=== PATIENT | female | born 1955 | race Caucasian/White ===

== ENCOUNTER → 2016-09-22 | Outpatient (CLI) | payer MEDICARE, MEDICAID ==
[~2016-09-22] MED LIST: ACET-2469 PO; ACET-93 PO; ASPI-808 PO; CALC600T12 PO; ERGO400T3 PO; MAGN250T13 PO; MULT-974 PO; NAPR500T3 PO; TRAM50TA2 PO
--- NOTE | 2016-09-22 17:09 | Diagnostic Imaging Report ---
Bilateral screening mammogram. The current study was also evaluated with a Computer Aided Detection (CAD) system. INDICATION: Screening. No current complaints stated on the questionnaire. COMPARISON: 09/19/2015. FINDINGS: The breasts are composed of heterogeneously dense parenchyma which may decrease mammographic sensitivity. Benign-appearing calcifications are seen. There is a biopsy clip noted in the outer aspect of the right breast. Allowing for technique and positional differences, no suspicious change is seen. IMPRESSION: Dense breasts with no definite change. ACR BI-RADS Category 2: Benign findings. Result letter will be mailed to the patient. Note: At least 10% of breast cancer is not imaged by mammography. Dictated by: Dictated on workstation # [id number]
== END ==
LOC: RAD 11:01
PROVIDERS: ATTEND Nurse Practitioner Community Health
DX: Z12.31 Encounter for screening mammogram for malignant neoplasm of breast (principal)
CPT/HCPCS: 77067

== ENCOUNTER → 2017-12-17 | Outpatient (CLI) | payer MEDICARE, MEDICAID ==
[~2017-12-17] MED LIST changes: +NAPR-915 PO; -NAPR500T3 PO
--- NOTE | 2017-12-17 18:01 | Diagnostic Imaging Report ---
INDICATION: Digital mammogram bilateral screening with 3-D tomosynthesis. This study was compared to the prior exam of 09/22/16, 09/19/15 and 01/09/14. At this time, there are no current complaints. The current study was also evaluated with a Computer Aided Detection (CAD) system. FINDINGS: The fibroglandular tissue in both breasts is heterogeneously dense. This does limit the sensitivity of this exam. Overall, there does not appear to have been any significant change when compared to the prior study. No primary or secondary sign of malignancy is noted. The stereotactic clip in the right breast seen previously is again evident. 3D tomographic images fail to show any sign of malignancy. IMPRESSION: There is no radiographic evidence for malignancy. ACR BI-RADS Category 1: Negative. Result letter will be mailed to the patient. Note: At least 10% of breast cancer is not imaged by mammography. Dictated by: Dictated on workstation # [id number]
== END ==
LOC: RAD 10:17
PROVIDERS: ATTEND Nurse Practitioner Community Health
DX: Z12.31 Encounter for screening mammogram for malignant neoplasm of breast (principal)
CPT/HCPCS: 77067

== ENCOUNTER → 2018-09-07 | Outpatient (CLI) | payer MEDICARE, MEDICAID ==
--- NOTE | 2018-09-07 16:04 | Diagnostic Imaging Report ---
INDICATION: Postmenopausal screening for osteoporosis. COMPARISON: None. FINDINGS: AP Spine L1-L4: [BMD (g/cm2): 1.011] [T-Score: -1.6] [Z-Score: -0.5] [BMD Previous: N/A] [BMD % Change: N/A] LT Hip Neck: [BMD (g/cm2): 0.825] [T-Score: -1.5] [Z-Score: -0.4] LT Hip Total: [BMD (g/cm2):0.795] [T-Score:-1.7] [Z-Score: -0.8] [BMD Previous: N/A] [BMD % Change: N/A] RT Hip Neck: [BMD (g/cm2):0.810] [T-Score:-1.6] [Z-Score:-0.5] RT Hip Total: [BMD (g/cm2):0.777] [T-score:-1.8] [Z-Score:-1.0] [BMD Previous:N/A] [BMD % Change:N/A] *Indicates significant change from prior examination based on 95% confidence level. World Health Organization criteria for BMD interpretation classify patients as Normal (T-score at or above -1.0), Osteopenic (T-score between -1.0 and -2.5) or Osteoporotic (T-score at or below -2.5). LIMITATIONS AND MODIFICATION: None. FRACTURE RISK (FRAX SCORE): The ten year probability of (%): Major Osteoporotic Fracture: [8.6] Hip Fracture: [0.9] IMPRESSION: 1. Osteopenia (Low bone mass). 2. Baseline examination. 3. See below National Osteoporosis Foundation guidelines on when to potentially initiate pharmacologic therapy. Based on the National Osteoporosis Foundation Guidelines, pharmacologic treatment should be initiated in any of the following, unless clinical conditions suggest otherwise: * Any patient with prior fragility fracture of the hip or vertebrae. A spine fracture indicates 5X risk for subsequent spine fracture and 2X risk for subsequent hip fracture. * Osteoporosis (T-score <-2.5). * Postmenopausal women and men age 50 and older with low bone mass/osteopenia (T-score between -1.0 and -2.5) by DXA and 10-year major osteoporotic fracture greater than 20% or a 10-year probability of hip fracture greater than 3%. These fracture risks are supplied above in the FRAX score, if applicable. * Clinician judgement and/or patient preferences may indicate treatment for people with 10-year fracture probabilities above or below these levels. Dictated by: Dictated on workstation # [id number]
== END ==
LOC: RAD 10:11
PROVIDERS: ATTEND Nurse Practitioner Community Health
DX: Z13.820 Encounter for screening for osteoporosis (principal); M85.89 Other specified disorders of bone density and structure, multiple sites; N95.9 Unspecified menopausal and perimenopausal disorder; Z78.0 Asymptomatic menopausal state
CPT/HCPCS: 77080

== ENCOUNTER → 2018-12-22 | Outpatient (CLI) | payer MEDICARE, MEDICAID ==
--- NOTE | 2018-12-22 17:40 | Diagnostic Imaging Report ---
INDICATION: Routine screening. COMPARISON: Comparison is made with prior mammograms from 12/17/2017 and 09/22/2016. TECHNIQUE: 2-D and 3-D bilateral screening mammography was performed. The current study was also evaluated with a Computer Aided Detection (CAD) system. 3-D tomosynthesis was also performed and reviewed. FINDINGS: Both breasts are heterogeneously dense, limiting the sensitivity of mammography. Benign-appearing calcifications in both breasts are again noted. Marker clip in the upper right breast is again seen. No dominant mass or malignant-appearing microcalcifications are identified. Axillae are unremarkable. IMPRESSION: No mammographic features suspicious for malignancy are identified. ACR BI-RADS Category 2: Benign findings. Result letter will be mailed to the patient. Note: At least 10% of breast cancer is not imaged by mammography. Dictated by: Dictated on workstation # [id number]
== END ==
LOC: RAD 09:41
PROVIDERS: ATTEND Nurse Practitioner Community Health
DX: Z12.31 Encounter for screening mammogram for malignant neoplasm of breast (principal)
CPT/HCPCS: 77067

== ENCOUNTER → 2019-12-30 | Outpatient (CLI) | payer MEDICARE, MEDICAID ==
[~2019-12-30] MED LIST changes: -ACET-2469 PO; +ACET-2715 PO; -CALC600T12 PO; +CALC600T14 PO; -TRAM50TA2 PO; +TRM50T PO
--- NOTE | 2019-12-30 12:09 | Diagnostic Imaging Report ---
INDICATION: Routine screening. Comparison is made with prior mammogram from 12/22/2018 and 12/17/2017. 2-D and 3-D bilateral screening mammography was performed with CAD. Both breasts remain heterogeneously dense, limiting the sensitivity of mammography. A marker clip outer right breast is again noted. No mass or malignant appearing microcalcifications are seen. There are benign calcifications present bilaterally. Axillae are unremarkable. IMPRESSION: BI-RADS Category 2 No mammographic features suspicious for malignancy are identified. ACR BI-RADS Category 2: Benign findings. Result letter will be mailed to the patient. Note: At least 10% of breast cancer is not imaged by mammography. Dictated by: Dictated on workstation # [id number]
== END ==
LOC: RAD 10:25
PROVIDERS: ATTEND Nurse Practitioner Community Health
DX: Z12.31 Encounter for screening mammogram for malignant neoplasm of breast (principal)
CPT/HCPCS: 77063; 77067

== ENCOUNTER 2020-10-29 05:37 | Outpatient (CLI) | payer MEDICAID ==
[~2020-10-29] VITALS: Ht 154.9 cm; Wt 82.3 kg
[~2020-10-29 05:37] MED LIST changes: -ACET-2715 PO; +ACET-3075 PO; -CALC600T14 PO; +CALC600T91 PO
[2020-10-29] MEDS ORDERED: CHOL200014 PO (10:27)
[2020-10-29] MEDS ORDERED: DORZ1DRO7 OP (10:27)
[2020-10-29] MEDS ORDERED: ASPI-999 PO (10:27)
[2020-10-29] MEDS ORDERED: MIRA25TA PO (10:27)
[2020-10-29] MEDS ORDERED: BRIMON0.2 OP (10:27)
[2020-10-29] MEDS ORDERED: BRIM5DRO2 OP (10:27)
[2020-10-29] MEDS ORDERED: DIFL5DRO OP (10:27)
[2020-10-29] MEDS ORDERED: ATOR20TA66 PO (10:27)
[2020-10-29] MEDS ORDERED: LATA7.5D OP (10:27)
== END 2020-10-30 08:25 | disposition home or self-care (01) ==
LOC: PREOP 05:37
PROVIDERS: ATTEND Surgery
DX: Z01.818 Encounter for other preprocedural examination (principal)

== ENCOUNTER 2020-11-05 07:22 | Day surgery (SDC) | payer MEDICARE, MEDICAID ==
[~2020-11-05] VITALS: Ht 154.9 cm; Wt 82.3 kg
[~2020-11-05 07:22] MED LIST changes: +ASPI-999 PO; +ATOR20TA66 PO; +BRIM5DRO2 OP; +BRIMON0.2 OP; +CHOL200014 PO; +DIFL5DRO OP; +DORZ1DRO7 OP; +LATA7.5D OP; +MIRA25TA PO
[2020-11-05] MEDS ORDERED: LACTATED RINGERS 1,000 ML IV STA (07:32)
[2020-11-05] MEDS ORDERED: PROPOFOL INJECTION 50 ML IV ONE (07:45)
[2020-11-05 07:51] VITALS: BP 139/89
[2020-11-05 08:55] VITALS: BP 101/50
[2020-11-05 09:00] VITALS: BP 106/54
--- NOTE | 2020-11-05 09:08 | Anesthesia-General Post-Op ---
MAC Patient Condition Mental Status/LOC: Same as Preop Cardiovascular: Satisfactory Nausea/Vomiting: Absent Respiratory: Satisfactory Pain: Controlled Complications: Absent Post Op Complications Complications None Follow Up Care/Instructions Patient Instructions None needed. Anesthesiology Discharge Order Discharge Order Patient is doing well, no complaints, stable vital signs, no apparent adverse anesthesia problems. No complications reported per nursing. COSMO THURSTON CRNA Nov 05, 2020 09:08
--- NOTE | 2020-11-05 09:12 | Progress Note-Post Operative ---
Post-Operative Progess Note Surgeon (s)/Conference And Event Organiser (s) Surgeon KRYSTAL BRIAN DO Conference And Event Organiser: none Pre-Operative Diagnosis screening colonoscopy Post-Operative Diagnosis fecal impaction int hemorrhoids Procedure & Operative Findings Date of Procedure 11/05/20 Procedure Performed/Findings After informed consent was obtained, the patient was brought to the endoscopy suite and placed in the bed in the left lateral decubitus position. She was administered IV sedation by the OUTSOLE COMPRESSOR, who then monitored her vitals the entire time, heart rate, blood pressure and pulse ox and the scope was inserted, started the colonoscopy. Pushed in and immediately encounter a large fecal ball, able to push past this into the sigmoid colon. Unfortunately, found another large fecal ball blocking the way. At this point elected to stop procedure and pulled the scope back into the rectum, saw some minimal internal hemorrhoids and took a picture of this. The patient tolerated the procedure and she recovered in the endoscopy suite. Anesthesia Type IV sedation by OUTSOLE COMPRESSOR Estimated Blood Loss Estimated blood loss (mL): none Specimens/Packing Specimens Removed none KRYSTAL BRIAN DO Nov 05, 2020 09:12
--- NOTE | 2020-11-05 09:13 | Endoscopy Discharge Instruct ---
Endo Procedure/Findings Findings 1.: Other Findings (Fecal impaction/retained fecal material) 2.: Internal Hemorrhoids Discharge Instructions - Activity: You might feel a little sleepy until tomorrow. This is due to the medicine you received to relax you. Until tomorrow, you should: NOT drive a car, operate machinery or power tools. NOT drink any alcoholic beverages. NOT make any important decisions or sign importortant papers. Do not return to work until tomorrow, unless otherwise instructed. Resume previous activities tomorrow. Diet: Start by taking liquids. If you tolerate liquids, advance to solid food. 1.: Colonoscopy in 1 year (or less than a year, since not clean and therefore not completed today) Notify Physician - If you experience excessive bleeding, unusual abdominal pain, fever, or chest pain, contact your doctor immediately. KRYSTAL BRIAN DO Nov 05, 2020 09:13
[2020-11-05 09:25] VITALS: BP 155/80
[2020-11-05 10:00] VITALS: BP 155/80
== END 2020-11-05 10:00 | disposition home or self-care (01) ==
LOC: ENDO 07:22
PROVIDERS: ATTEND Surgery
DX: Z12.11 Encounter for screening for malignant neoplasm of colon (principal); K56.41 Fecal impaction; K64.8 Other hemorrhoids; H40.89 Other specified glaucoma; H33.22 Serous retinal detachment, left eye; R56.9 Unspecified convulsions; Z79.899 Other long term (current) drug therapy; Z79.82 Long term (current) use of aspirin; Z80.9 Family history of malignant neoplasm, unspecified

== ENCOUNTER 2020-12-10 06:07 | Outpatient (CLI) | payer MEDICARE, MEDICAID ==
[~2020-12-10] VITALS: Ht 154.9 cm; Wt 82.1 kg
== END 2020-12-10 15:12 | disposition home or self-care (01) ==
LOC: PREOP 06:07
PROVIDERS: ATTEND Surgery
DX: Z01.818 Encounter for other preprocedural examination (principal)

== ENCOUNTER 2020-12-17 06:50 | Day surgery (SDC) | payer MEDICARE, MEDICAID ==
[~2020-12-17] VITALS: Ht 154.9 cm; Wt 82.0 kg
[2020-12-17] MEDS ORDERED: LACTATED RINGERS 1,000 ML IV STA (07:12)
[2020-12-17] MEDS ORDERED: LACTATED RINGERS 1,000 ML IV ONE (07:15)
[2020-12-17 07:34] VITALS: BP 129/97
[2020-12-17] MEDS ORDERED: MIDAZOLAM 2 MG/2 ML (VERSED) VIAL ONE (07:52)
[2020-12-17] MEDS ORDERED: PROPOFOL INJECTION 50 ML IV ONE (07:52)
--- NOTE | 2020-12-17 09:21 | Progress Note-Post Operative ---
Post-Operative Progess Note Surgeon (s)/Strategic Sourcing Consultant (s) Surgeon KRYSTAL BRIAN DO Strategic Sourcing Consultant: none Pre-Operative Diagnosis screening colonoscopy Post-Operative Diagnosis diverticula int hemorrhoids Procedure & Operative Findings Date of Procedure 12/17/20 Procedure Performed/Findings Colonoscopy PROCEDURE NOTE: After informed consent was obtained, the patient was brought to the endoscopy suite, placed in bed in left lateral decubitus position. She was administered IV sedation by the DIRECTOR OF RESOURCE DEVELOPMENT who then monitored her vitals the entire time, heart rate, blood pressure and pulse ox and the scope was inserted, pushed all the way to about 150 cm and pushed into the cecum, took a picture of appendiceal orifice and then slowly withdrew the scope insufflating the circumferential barriga looking the cecum, up the ascending colon to the hepatic flexure, then down the transverse colon, splenic flexure, into the descending colon down in the sigmoid and then into the rectal vault and retroflexed the scope. Took picture of the internal hemorrhoids. The patient tolerated the procedure. She was recovered in endoscopy suite. Anesthesia Type IV sedation by DIRECTOR OF RESOURCE DEVELOPMENT Estimated Blood Loss Estimated blood loss (mL): none Specimens/Packing Specimens Removed none KRYSTAL BRIAN DO Dec 17, 2020 09:21
--- NOTE | 2020-12-17 09:22 | Endoscopy Discharge Instruct ---
Endo Procedure/Findings Findings 1.: Diverticulosis 2.: Internal Hemorrhoids Discharge Instructions - Activity: You might feel a little sleepy until tomorrow. This is due to the medicine you received to relax you. Until tomorrow, you should: NOT drive a car, operate machinery or power tools. NOT drink any alcoholic beverages. NOT make any important decisions or sign importortant papers. Do not return to work until tomorrow, unless otherwise instructed. Resume previous activities tomorrow. Diet: Start by taking liquids. If you tolerate liquids, advance to solid food. 1.: Colonscopy in 10 years Notify Physician - If you experience excessive bleeding, unusual abdominal pain, fever, or chest pain, contact your doctor immediately. KRYSTAL BRIAN DO Dec 17, 2020 09:22
[2020-12-17 09:25] VITALS: BP 85/52
[2020-12-17 09:30] VITALS: BP 86/53
[2020-12-17 09:35] VITALS: BP 110/70
[2020-12-17 09:55] VITALS: BP 130/83
[2020-12-17 10:01] VITALS: BP 130/83
--- NOTE | 2020-12-17 13:11 | Anesthesia-General Post-Op ---
MAC Patient Condition Mental Status/LOC: Same as Preop Cardiovascular: Satisfactory Nausea/Vomiting: Absent Respiratory: Satisfactory Pain: Controlled Complications: Absent Post Op Complications Complications None Follow Up Care/Instructions Patient Instructions None needed. Anesthesiology Discharge Order Discharge Order Patient is doing well, no complaints, stable vital signs, no apparent adverse anesthesia problems. No complications reported per nursing. BHAVIN BUSTAMANTE CRNA Dec 17, 2020 13:11
== END 2020-12-17 10:30 | disposition home or self-care (01) ==
LOC: ENDO 06:50
PROVIDERS: ATTEND Surgery
DX: Z12.11 Encounter for screening for malignant neoplasm of colon (principal); K57.30 Diverticulosis of large intestine without perforation or abscess without bleeding; K64.8 Other hemorrhoids; K56.41 Fecal impaction; Z79.899 Other long term (current) drug therapy; Z82.49 Family history of ischemic heart disease and other diseases of the circulatory system; Z80.9 Family history of malignant neoplasm, unspecified

== ENCOUNTER → 2021-10-08 | Outpatient (CLI) | payer MEDICARE, MEDICAID ==
[~2021-10-08] MED LIST changes: -CHOL200014 PO; +CHOL200052 PO
--- NOTE | 2021-10-08 14:35 | Diagnostic Imaging Report ---
PROCEDURE: MR imaging of the brain without contrast. TECHNIQUE: Multiplanar, multisequence MR imaging of the brain was performed without contrast. INDICATION: Memory loss. COMPARISON: None. FINDINGS: Mild generalized parenchymal volume loss. Mild nonspecific T2 hyperintensities in the supratentorial white matter. No restricted water diffusion. No hemosiderin deposition. Normal morphology including the major midline structures, sella, posterior fossa and cerebellopontine angle. Normal intracranial flow voids. No hydrocephalus or extra-axial fluid collections. Atrophic left globe. Paranasal sinuses and mastoids are unremarkable. Normal bone marrow signal. IMPRESSION: Age-appropriate MRI of the brain including mild generalized parenchymal volume loss and chronic small vessel ischemic change. No acute findings. No evidence of acute infarction or hemorrhage. Dictated by: Dictated on workstation # [id number]
== END ==
LOC: RAD 08:45
PROVIDERS: ATTEND Nurse Practitioner
DX: G31.1 Senile degeneration of brain, not elsewhere classified (principal); I67.82 Cerebral ischemia
CPT/HCPCS: 70551

== ENCOUNTER → 2021-12-02 | Outpatient (CLI) | payer MEDICARE, MEDICAID ==
--- NOTE | 2021-12-02 14:58 | Diagnostic Imaging Report ---
INDICATION: Routine screening. COMPARISON: 12/30/2019 and 12/22/2018. TECHNIQUE: 2D and 3D bilateral screening mammography was performed with CAD. FINDINGS: Both breasts are heterogeneously dense, limiting the sensitivity of mammography. The overall parenchymal pattern is stable. No dominant mass or malignant-appearing microcalcifications are seen. There are scattered benign calcifications. There is a biopsy marker clip in the outer right breast. The axillae are unremarkable. IMPRESSION: No mammographic features suspicious for malignancy are identified. ACR BI-RADS Category 2: Benign findings. Result letter will be mailed to the patient. Note: At least 10% of breast cancer is not imaged by mammography. Dictated by: Dictated on workstation # [id number]
== END ==
LOC: RAD 10:41
PROVIDERS: ATTEND Nurse Practitioner
DX: Z12.31 Encounter for screening mammogram for malignant neoplasm of breast (principal)
CPT/HCPCS: 77063; 77067

== ENCOUNTER → 2022-10-02 | Outpatient (CLI) | payer MEDICAID, MEDICARE ==
[~2022-10-02] MED LIST changes: +BRIM5DRO3 OP; -BRIMON0.2 OP
== END ==
LOC: CARD 12:30
PROVIDERS: ATTEND Internal Medicine Cardiovascular Disease
DX: I25.10 Atherosclerotic heart disease of native coronary artery without angina pectoris (principal); I11.9 Hypertensive heart disease without heart failure
CPT/HCPCS: 93306